=== PATIENT | female | born 1975 | race Caucasian/White ===

== ENCOUNTER 2024-06-03 13:40 | Emergency (ER) | payer OTHER ==
--- OUTSIDE RECORDS SUMMARY | 2024-06-03 13:44 | XMS REPORT | Continuity of Care Document ---
Author Name Unknown Address [address] [facility] [place] [address] [facility] thconnect Address [address] [facility] [address] [place] [address] Care Team Providers Care Chip Mixer Name Role Phone Emely Bear Attending Clinician Unavail able Christina Zuluaga Attending Clinician Unavailable Marianna LUND Attending Clinician Unavailable [email or web address]_Kadiyala_S Attending Clinician Unavaila ble [email or web address]_Kadiyala_S Admitting Clinician Unavaila ble Payers Payer Name Policy Type Policy Number Effective Date Expirati on Date Source [place] [facility] [id number] 2022 00:00:00 [facility] Gold 53 [id number] 2021 00:00:00 2022 00:00:00 [facility] from [facility] [id number] 2020 00:00:00 2021 00:00:00 [facility] [id number] 2020 00:00:00 2021 00:00:00 [facility] [id number] 2020 00:00:00 2021 00:00:00 [facility] Problems Condition Name Condition Details Condition Category Status Onset Date Resolution Date Last Treatment Date Treating Clinician Comments Source [id number] Vertigo Problem [facility] [id number] Bariatric surgery status Problem [facility] [id number] Type 2 diabetes mellitus with other diabetic kidney complicati on Problem [facility] [id number] BMI 27.0-27.9, adult Problem [facility] [id number] Non compliance w medication regimen Problem [facility] [id number] Iron deficiency anemia secondary to inadequate dietary iron intake Problem [facility] [id number] Proteinuri a, unspecifie d Problem [facility] Mixed hyperlipid emia Mixed hyperlipid emia Problem [facility] [id number] Menorrhagi a with irregular cycle Problem [facility] [id number] Acquired hypothyroi dism Problem [facility] Hyperlipid emia Hyperlipid emia Problem [facility] Hypertensi on HTN (hypertens ion) Problem [facility] Overweight Overweight Problem Co [facility] Gastroesop hageal reflux disease without esophagiti s Gastroesop hageal reflux disease without esophagiti s Problem [facility] Social History Social Habit Start Date Stop Date Quantity Comments Source History of Tobacco Use 1991-07-24 00:00:00 [facility] Sex Assigned At [facility] Smoking Status Start Date Stop Date Source Former Smoker 2024-05-14 00:00:00 2024-05-14 00:00:00 [facility] Never Smoker [facility] Medications Ordered Medication Name Filled Medication Name Start Date Stop Date Current Medication? Ordering Clinician Indication Dosage Frequency Signature (SIG) Comments Components Source Ozempic (1 MG/DOSE) 4 MG/3ML Ozempic (1 MG/DOSE) 4 MG/3ML 8-19 00:00: 00 No Ozempic (1 MG/DOSE) 4 MG/3ML Ozempic (0.25 or 0.5 MG/DOSE) 2 MG/3ML Ozempic (0.25 or 0.5 MG/DOSE) 2 MG/3ML 01-09 00:00: 00 No Ozempic (0.25 or 0.5 MG/DOSE) 2 MG/3ML Multivitami n Multivitami n No Multivitam in Iron (Ferrous Sulfate) 325 (65 Fe) MG Iron (Ferrous Sulfate) 325 (65 Fe) MG No 1{table t} Iron (Ferrous Sulfate) 325 (65 Fe) MG Levothyroxi ne Sodium 100 MCG Levothyroxi ne Sodium 100 MCG No QD Levothyrox ine Sodium 100 MCG Atorvastati n Calcium 40 MG Atorvastati n Calcium 40 MG No 1{table t} QD Atorvastat in Calcium 40 MG Levothyroxi ne Sodium 112 MCG Levothyroxi ne Sodium 112 MCG No QD Levothyrox ine Sodium 112 MCG Atorvastati n Calcium 80 MG Atorvastati n Calcium 80 MG No 1{table t} QD Atorvastat in Calcium 80 MG Immunizations Ordered Immunization Name Filled Immunization Name Date Status Comments Source Prevnar 20 (PCV20) Prevnar 20 (PCV20) Unknown Completed [facility] Prevnar 20 (PCV20) Prevnar 20 (PCV20) Unknown Completed [facility] Prevnar 20 (PCV20) Prevnar 20 (PCV20) Unknown Completed [facility] Prevnar 20 (PCV20) Prevnar 20 (PCV20) Unknown Completed [facility] Prevnar 20 (PCV20) Prevnar 20 (PCV20) Unknown Completed [facility] Prevnar 20 (PCV20) Prevnar 20 (PCV20) Unknown Completed [facility] Prevnar 20 (PCV20) Prevnar 20 (PCV20) Unknown Completed [facility] Prevnar 20 (PCV20) Prevnar 20 (PCV20) Unknown Completed [facility] Vital Signs Vital Name Observation Time Observation Value Comments S ource height 2024-05-14 08:40:00 64.5 [in_i] Comm on [facility] weight 2024-05-14 08:40:00 152.8 [lb_av] [facility] temperature 2024-05-14 08:40:00 97.8 [degF] Com mon [facility] bmi 2024-05-14 08:40:00 25.82 kg/m2 Comm on [facility] oximetry 2024-05-14 08:40:00 98 % Commo n [facility] respiratory rate 2024-05-14 08:40:00 16 /min Common [facility] blood pressure systolic 2024-05-14 08:40:00 100 mm[Hg] [facility] blood pressure diastolic 2024-05-14 08:40:00 60 mm[Hg] Common [facility] height 2024-03-12 09:20:00 64.5 [in_i] Comm on [facility] weight 2024-03-12 09:20:00 161 [lb_av] Comm on [facility] temperature 2024-03-12 09:20:00 97.7 [degF] Com mon [facility] bmi 2024-03-12 09:20:00 27.21 kg/m2 Comm on [facility] oximetry 2024-03-12 09:20:00 98 % [facility]mo n [facility] respiratory rate 2024-03-12 09:20:00 18 /min Common [facility] blood pressure systolic 2024-03-12 09:20:00 110 mm[Hg] [facility] blood pressure diastolic 2024-03-12 09:20:00 58 mm[Hg] Common [facility] height 2023-10-10 10:40:00 64.5 [in_i] Comm on [facility] weight 2023-10-10 10:40:00 172 [lb_av] Comm on [facility] temperature 2023-10-10 10:40:00 97.9 [degF] Com mon [facility] bmi 2023-10-10 10:40:00 29.06 kg/m2 Comm on [facility] oximetry 2023-10-10 10:40:00 98 % [facility]mo n [facility] respiratory rate 2023-10-10 10:40:00 16 /min Common [facility] blood pressure systolic 2023-10-10 10:40:00 124 mm[Hg] Common [facility] blood pressure diastolic 2023-10-10 10:40:00 79 mm[Hg] [facility] height 2023-08-11 08:40:00 64.5 [in_i] Comm on [facility] weight 2023-08-11 08:40:00 168 [lb_av] Comm on [facility] temperature 2023-08-11 08:40:00 98 [degF] Comm on [facility] bmi 2023-08-11 08:40:00 28.39 kg/m2 Comm on [facility] oximetry 2023-08-11 08:40:00 98 % [facility] respiratory rate 2023-08-11 08:40:00 15 /min [facility] blood pressure systolic 2023-08-11 08:40:00 111 mm[Hg] Common [facility] blood pressure diastolic 2023-08-11 08:40:00 63 mm[Hg] Common [facility] height 2023-06-27 10:00:00 64.5 [in_i] Comm on [facility] weight 2023-06-27 10:00:00 172.4 [lb_av] Co [facility] temperature 2023-06-27 10:00:00 98.5 [degF] Com mon [facility] bmi 2023-06-27 10:00:00 29.13 kg/m2 Comm on [facility] oximetry 2023-06-27 10:00:00 98 % [facility] respiratory rate 2023-06-27 10:00:00 16 /min Common [facility] blood pressure systolic 2023-06-27 10:00:00 124 mm[Hg] [facility] diastolic 2023-06-27 10:00:00 86 mm[Hg] [facility] height 2023-04-27 10:00:00 64.5 [in_i] Comm on [facility] weight 2023-04-27 10:00:00 169 [lb_av] Comm on [facility] temperature 2023-04-27 10:00:00 98 [degF] Comm on [facility] bmi 2023-04-27 10:00:00 28.56 kg/m2 Comm on [facility] oximetry 2023-04-27 10:00:00 100 % Commo n [facility] respiratory rate 2023-04-27 10:00:00 16 /min [facility] blood pressure systolic 2023-04-27 10:00:00 130 mm[Hg] [facility] blood pressure diastolic 2023-04-27 10:00:00 74 mm[Hg] [facility] height 2022-05-27 16:20:00 66 [in_i] Commo n [facility] weight 2022-05-27 16:20:00 172.0 [lb_av] Co m[facility] temperature 2022-05-27 16:20:00 98.0 [degF] Com mon [facility] bmi 2022-05-27 16:20:00 27.76 kg/m2 Comm on [facility] oximetry 2022-05-27 16:20:00 98 % Commo n [facility] respiratory rate 2022-05-27 16:20:00 16 /min Common [facility] blood pressure systolic 2022-05-27 16:20:00 138 mm[Hg] [facility] blood pressure diastolic 2022-05-27 16:20:00 77 mm[Hg] [facility] height 2022-02-25 14:40:00 66 [in_i] Commo n [facility] weight 2022-02-25 14:40:00 168.8 [lb_av] Co mmon [facility] temperature 2022-02-25 14:40:00 97.7 [degF] Com [facility] bmi 2022-02-25 14:40:00 27.24 kg/m2 Comm on [facility] oximetry 2022-02-25 14:40:00 99 % [facility]mo [facility] respiratory rate 2022-02-25 14:40:00 15 /min [facility] blood pressure systolic 2022-02-25 14:40:00 114 mm[Hg] [facility] blood pressure diastolic 2022-02-25 14:40:00 66 mm[Hg] [facility] height 2021-11-24 14:40:00 66 [in_i] Commo n [facility] weight 2021-11-24 14:40:00 171.0 [lb_av] Co mmon [facility] temperature 2021-11-24 14:40:00 97.7 [degF] Com mon [facility] bmi 2021-11-24 14:40:00 27.6 kg/m2 Commo [facility] oximetry 2021-11-24 14:40:00 99 % Com[facility] respiratory rate 2021-11-24 14:40:00 16 /min [facility] blood pressure systolic 2021-11-24 14:40:00 132 mm[Hg] [facility] blood pressure diastolic 2021-11-24 14:40:00 70 mm[Hg] Common [facility] height 2021-02-25 08:20:00 66 [in_i] Commo n [facility] weight 2021-02-25 08:20:00 170.0 [lb_av] Co mmon [facility] bmi 2021-02-25 08:20:00 27.44 kg/m2 Comm on [facility] Encounters Start Date/Time End Date/Time Encounter Type Admission Type Attending Clinicians Care Facility Care Department Encounter ID Source 2024-05-10 14:13:00 Outpatient Emely Bear STLMLC STLMLC [id number] [facility] 2024-03-08 13:39:00 Outpatient Emely Bear STLMLC STLMLC [id number] [facility] 2024-03-07 16:31:00 Outpatient Emely Bear STLMLC STLMLC [id number] [facility] 2023-10-06 08:16:00 Outpatient Emely Bear STLMLC STLMLC [id number] [facility] 2023-08-12 11:20:00 Outpatient Emely Bear STLMLC STLMLC [id number] [facility] 2023-08-09 12:01:00 Outpatient Emely Bear STLMLC STLMLC [id number] [facility] 2023-07-07 13:53:00 Outpatient Emely Bear STLMLC STLMLC [id number] [facility] 2023-06-24 09:39:00 Outpatient STLMLC STLMLC [id number] [facility] 2023-04-25 09:31:00 Outpatient STLMLC STLMLC [id number] [facility] 2023-04-22 13:23:00 Outpatient STLMLC STLMLC [id number] [facility] 2022-08-18 13:21:01 Outpatient Christina Zuluaga STLMLC STLMLC [id number] [facility] 2022-08-12 13:39:00 Outpatient ASHELY Na STLMLC STLMLC [id number] [facility] 2022-05-25 16:44:00 Outpatient Lund, Na STLMLC STLMLC [id number] [facility] 2022-02-23 14:42:00 Outpatient Lund, Na STLMLC STLMLC [id number] [facility] 2021-12-01 08:47:00 Outpatient Lund, Na STLMLC STLMLC [id number] [facility] 2021-08-19 14:39:02 Outpatient Lund, Na STLMLC STLMLC [id number] [facility] 2021-08-19 14:01:36 Outpatient Lund, Na STLMLC STLMLC [id number] [facility] 2021-08-19 13:13:58 Outpatient Lund, Na STLMLC STLMLC [id number] [facility] 2021-08-19 13:11:36 Outpatient Lund, Na STLMLC STLMLC [id number] [facility] 2021-08-19 13:10:50 Outpatient Lund, Na STLMLC STLMLC [id number] [facility] 2021-08-19 13:05:10 Outpatient Lund, Na STLMLC STLMLC [id number] [facility] 2021-08-19 12:29:58 Outpatient Lund, Na STLMLC STLMLC [id number] [facility] 2021-08-19 12:03:13 Outpatient Lund, Na STLMLC STLMLC [id number] [facility] 2021-08-19 12:02:42 Outpatient Ashely, Na STLMLC STLMLC [id number] [facility] 2021-08-19 11:36:29 Outpatient Ashely Na STLMLC STLMLC [id number] [facility] 2021-08-19 11:35:54 Outpatient Marianna Lund STLMLC STLMLC [id number] [facility] 2024-05-21 00:00:00 2024-05-21 00:00:00 (TEL) STLMLC STLMLC [id number] [facility] 2024-05-14 00:00:00 2024-05-14 00:00:00 OFFICE VISIT ESTAB PT LEVEL 4 STLMLC STLMLC [id number] [facility] 2024-05-14 00:00:00 2024-05-14 00:00:00 (TEL) STLMLC STLMLC [id number] [facility] 2024-03-12 00:00:00 2024-03-12 00:00:00 OFFICE VISIT ESTAB PT LEVEL 4 STLMLC STLMLC [id number] [facility] 2024-03-12 00:00:00 2024-03-12 00:00:00 (TEL) STLMLC STLMLC [id number] [facility] 2024-01-10 00:00:00 2024-01-10 00:00:00 OFFICE VISIT ESTAB PT LEVEL 4 STLMLC STLMLC [id number] [facility] 2024-01-10 00:00:00 2024-01-10 00:00:00 (TEL) STLMLC STLMLC [id number] [facility] 2024-01-10 00:00:00 2024-01-10 00:00:00 (TEL) STLMLC STLMLC [id number] [facility] 2024-01-10 00:00:00 2024-01-10 00:00:00 (TEL) STLMLC STLMLC [id number] [facility] 2023-10-10 00:00:00 2023-10-10 00:00:00 OFFICE VISIT ESTAB PT LEVEL 4 STLMLC STLMLC [id number] [facility] 2023-08-11 00:00:00 2023-08-11 00:00:00 OFFICE VISIT ESTAB PT LEVEL 4 STLMLC STLMLC [id number] [facility] 2023-08-11 00:00:00 2023-08-11 00:00:00 (TEL) STLMLC STLMLC [id number] [facility] 2023-07-14 00:00:00 2023-07-14 00:00:00 Outpatient GC_GCBZW_Ka diyala_S PRIV PRIV [id number] [facility] 2023-07-13 00:00:00 2023-07-13 00:00:00 Outpatient GC_GCBZW_Ka diyala_S PRIV PRIV [id number] [facility] 2023-07-07 00:00:00 2023-07-07 00:00:00 Outpatient GC_GCBZW_Ka diyala_S PRIV PRIV [id number] [facility] 2023-07-07 00:00:00 2023-07-07 00:00:00 (WEB) STLMLC STLMLC [id number] [facility] 2023-06-28 00:00:00 2023-06-28 00:00:00 Outpatient GC_GCBZW_Ka diyala_S PRIV PRIV [id number] [facility] 2023-06-27 00:00:00 2023-06-27 00:00:00 (ESTPT) Establishe d Patient STLMLC STLMLC [id number] [facility] 2023-06-22 00:00:00 2023-06-22 00:00:00 (TEL) STLMLC STLMLC [id number] [facility] 2023-05-25 00:00:00 2023-05-25 00:00:00 Outpatient GC_GCBZW_Ka diallen_S [facility] [id number] [facility] 2023-04-27 00:00:00 2023-04-27 00:00:00 OFFICE VISIT NEW PT LEVEL 4 STLMLC STLMLC [id number] [facility] 2022-05-27 00:00:00 2022-05-27 00:00:00 OFFICE VISIT ESTAB PT LEVEL 4 STLMLC STLMLC [id number] [facility] 2022-02-25 00:00:00 2022-02-25 00:00:00 OFFICE VISIT ESTAB PT LEVEL 4 STLMLC STLMLC [id number] [facility] 2021-11-30 00:00:00 2021-11-30 00:00:00 (TEL) STLMLC STLMLC [id number] [facility] 2021-11-24 00:00:00 2021-11-24 00:00:00 OFFICE VISIT ESTAB PT LEVEL 4 STLMLC STLMLC [id number] [facility] 2021-09-16 00:00:00 2021-09-16 00:00:00 (TEL) STLMLC STLMLC [id number] [facility] 2021-08-19 00:00:00 2021-08-19 00:00:00 OFFICE VISIT ESTAB PT LEVEL 4 STLMLC STLMLC [id number] [facility] 2021-05-12 00:00:00 2021-05-12 00:00:00 OFFICE VISIT EST PT LEVEL 3 STLMLC STLMLC [id number] [facility] 2021-05-08 00:00:00 2021-05-08 00:00:00 (TEL) STLMLC STLMLC [id number] [facility] 2021-05-01 00:00:00 2021-05-01 00:00:00 (TEL) STLMLC STLMLC [id number] [facility] 2021-02-25 00:00:00 2021-02-25 00:00:00 OFFICE VISIT EST PT LEVEL 3 STLMLC STLMLC [id number] [facility] 2020-12-30 00:00:00 2020-12-30 00:00:00 Outpatient STLMLC STLMLC [id number] [facility] 2020-12-30 00:00:00 2020-12-30 00:00:00 Outpatient STLMLC STLMLC [id number] [facility] 2020-12-10 00:00:00 2020-12-10 00:00:00 Outpatient STLMLC STLMLC [id number] [facility] 2020-09-25 00:00:00 2020-09-25 00:00:00 Outpatient STLMLC STLMLC [id number] [facility] 2020-09-04 00:00:00 2020-09-04 00:00:00 Outpatient STLMLC STLMLC [id number] [facility] 2020-06-03 00:00:00 2020-06-03 00:00:00 Outpatient STLMLC STLMLC [id number] [facility] 2020-03-04 10:40:00 2020-03-04 10:40:[address] [facility] [id number] [facility] 2020-01-28 15:22:00 2020-01-28 15:22:[address] [facility] [id number] [facility] 2020-01-23 10:02:00 2020-01-23 10:02:[address] [facility] [id number] [facility] 2020 15:01:00 2020 15:01:[address] [facility] [id number] [facility] 2019-12-03 08:00:00 2019-12-03 08:00:[address] [facility] [id number] [facility] 2019-10-23 10:51:00 2019-10-23 10:51:[address] [facility] [id number] [facility] 2019-08-31 11:00:00 2019-08-31 11:00:[address] [facility] [facility] [id number] [facility] 2019-08-10 15:42:00 2019-08-10 15:42:[address] [facility] [id number] [facility] 2019-06-03 12:23:00 2019-06-03 12:23:[address] [facility] [id number] [facility] 2019-05-31 10:00:00 2019-05-31 10:00:[address] [facility] [facility] [id number] [facility] 2019-01-09 13:00:00 2019-01-09 13:00:[address] [facility] [id number] [facility] 2018-11-16 15:51:00 2018-11-16 15:51:[address] [facility] [id number] [facility] 2018-10-09 11:15:00 2018-10-09 11:15:[address] [facility] [id number] [facility] 2018-07-11 08:24:00 2018-07-11 08:24:[address] [facility] [id number] [facility] 2018-03-09 09:45:00 2018-03-09 09:45:[address] [facility] [id number] [facility] 2017-11-29 08:30:00 2017-11-29 08:30:00 [facility] [id number] [facility] Results Test Description Test Time Test Comments Results Result Co mments Source CBC W/O DIFF, WITH [id number] 00:00:00* Test Item Value Reference Range Interpretation Comme nts HEMATOCRIT (test code = 59514-3) 38.9 % See_Comment [Automated messa ge] The system which generated this result transmitted reference range: 34.0-45.0 %. The reference range was not used to interpret this result as normal/abnormal. HEMOGLOBIN (test code = 718-7) 12.8 G/DL See_Comment [Automated messa ge] The system which generated this result transmitted reference range: 11.5-15.5 G/DL. The reference range was not used to interpret this result as normal/abnormal. MCH (test code = 65983-0) 28.2 PG See_Comment [Automated messa ge] The system which generated this result transmitted reference range: 25.0-33.0 PG. The reference range was not used to interpret this result as normal/abnormal. MCHC (test code = 81716-7) 32.9 G/DL See_Comment [Automated messa ge] The system which generated this result transmitted reference range: 31.0-36.0 G/DL. The reference range was not used to interpret this result as normal/abnormal. MCV (test code = 40085-8) 85.7 fL See_Comment [Automated messa ge] The system which generated this result transmitted reference range: 80.0-99.0 fL. The reference range was not used to interpret this result as normal/abnormal. PLATELET COUNT (test code = 59569-0) 289 K/UL See_Comment [Automated messa ge] The system which generated this result transmitted reference range: 130-400 K/UL. The reference range was not used to interpret this result as normal/abnormal. RBC (test code = 80498-5) 4.54 M/UL See_Comment [Automated messa ge] The system which generated this result transmitted reference range: 3.80-5.40 M/UL. The reference range was not used to interpret this result as normal/abnormal. WBC (test code = 67357-8) 6.1 K/UL See_Comment [Automated messa ge] The system which generated this result transmitted reference range: 3.5-11.0 K/UL. The reference range was not used to interpret this result as normal/abnormal. HEMOGLOBIN [id number] 00:00:00* Test Item Value Reference Range Interpretation Comme nts A1C (test code = 4548-4) 6.8 HEMOGLOBIN [id number] 00:00:00* Test Item Value Reference Range Interpretation Comme nts A1C (test code = 4548-4) 6.1 CBC W/O DIFF, WITH [id number] 00:00:00* Test Item Value Reference Range Interpretation Comme nts HEMATOCRIT (test code = 95992-2) 34.3 % See_Comment [Automated messa ge] The system which generated this result transmitted reference range: 34.0-45.0 %. The reference range was not used to interpret this result as normal/abnormal. HEMOGLOBIN (test code = 718-7) 10.0 G/DL See_Comment L [Automated messa ge] The system which generated this result transmitted reference range: 11.5-15.5 G/DL. The reference range was not used to interpret this result as normal/abnormal. MCH (test code = 13377-7) 20.4 PG See_Comment L [Automated messa ge] The system which generated this result transmitted reference range: 25.0-33.0 PG. The reference range was not used to interpret this result as normal/abnormal. MCHC (test code = 46216-6) 29.2 G/DL See_Comment L [Automated messa ge] The system which generated this result transmitted reference range: 31.0-36.0 G/DL. The reference range was not used to interpret this result as normal/abnormal. MCV (test code = 88411-4) 69.9 fL See_Comment L [Automated messa ge] The system which generated this result transmitted reference range: 80.0-99.0 fL. The reference range was not used to interpret this result as normal/abnormal. PLATELET COUNT (test code = 58019-4) 275 K/UL See_Comment [Automated messa ge] The system which generated this result transmitted reference range: 130-400 K/UL. The reference range was not used to interpret this result as normal/abnormal. RBC (test code = 28329-6) 4.91 M/UL See_Comment [Automated messa ge] The system which generated this result transmitted reference range: 3.80-5.40 M/UL. The reference range was not used to interpret this result as normal/abnormal. WBC (test code = 75696-5) 6.6 K/UL See_Comment [Automated messa ge] The system which generated this result transmitted reference range: 3.5-11.0 K/UL. The reference range was not used to interpret this result as normal/abnormal. CBC W/O DIFF, WITH [id number] 00:00:00* Test Item Value Reference Range Interpretation Comme nts COMMENTS (test code = 75963-8) (NOTE) HEMATOCRIT (test code = 92228-7) 27.3 % See_Comment L [Automated messa ge] The system which generated this result transmitted reference range: 34.0-45.0 %. The reference range was not used to interpret this result as normal/abnormal. HEMOGLOBIN (test code = 718-7) 7.8 G/DL See_Comment L [Automated messa ge] The system which generated this result transmitted reference range: 11.5-15.5 G/DL. The reference range was not used to interpret this result as normal/abnormal. MCH (test code = 84273-2) 18.1 PG See_Comment L [Automated messa ge] The system which generated this result transmitted reference range: 25.0-33.0 PG. The reference range was not used to interpret this result as normal/abnormal. MCHC (test code = 51068-3) 28.6 G/DL See_Comment L [Automated messa ge] The system which generated this result transmitted reference range: 31.0-36.0 G/DL. The reference range was not used to interpret this result as normal/abnormal. MCV (test code = 21229-9) 63.2 fL See_Comment L [Automated messa ge] The system which generated this result transmitted reference range: 80.0-99.0 fL. The reference range was not used to interpret this result as normal/abnormal. PLATELET COUNT (test code = 19383-4) 309 K/UL See_Comment [Automated [facility]] The system which generated this result transmitted reference range: 130-400 K/UL. The reference range was not used to interpret this result as normal/abnormal. RBC (test code = 48829-3) 4.32 M/UL See_Comment [Automated [facility]] The system which generated this result transmitted reference range: 3.80-5.40 M/UL. The reference range was not used to interpret this result as normal/abnormal. WBC (test code = 60748-3) 7.2 K/UL See_Comment [Automated [facility]] The system which generated this result transmitted reference range: 3.5-11.0 K/UL. The reference range was not used to interpret this result as normal/abnormal. HEMOGLOBIN [id number] 00:00:00* Test Item Value Reference Range Interpretation Comme [facility] A1C (test code = 4548-4) 7.0 % Prothrombin Time (PT) INR [id number] 00:00:00* Test Item Value Reference Range Interpretation Comme [facility] INR (test code = 6301-6) 1.0 0.9-1.2 Prothrombin Time (test code = 5902-2) 10.3 9.1-12.0
[2024-06-03] MEDS ORDERED: NA CHLORIDE 0.9% 1,000 ML ONE (15:10)
[2024-06-03 15:31] LABS: Specific Gravity > 1.030 (1.005-1.030)
[2024-06-03 15:32] LABS: Specific Gravity > 1.030 (1.005-1.030); Sqamous Epithelial <5 /HPF (None Seen); Urine Bacteria None Seen /HPF (<20); Urine Bilirubin NEGATIVE (Negative); Urine Blood 1+ (Negative); Urine Clarity Clear (Clear); Urine Color Yellow (Yellow); Urine Culture Reflex Order NOT NEEDED; Urine Glucose NEGATIVE (Negative); Urine Ketones TRACE (Negative); Urine Microscopic Reflex YN ORDER UMIC; Urine Mucus 1+ /HPF (None Seen); Urine Nitrite NEGATIVE (Negative); Urine Protein TRACE (Negative); Urine RBC >50 /HPF (None Seen); Urine Urobilinogen Normal (Normal); Urine WBC <5 /HPF (<5); Urine Yeast (Budding) Trace /HPF (None Seen); Urine pH 5.5 (5.0-7.0)
[2024-06-03 15:35] LABS: Absolute Basophils 0.1 K/uL (0-0.5); Absolute Eosinophils 0.2 K/uL (0-0.5); Absolute Monocytes 0.5 K/uL (0.1-1.3); Absolute Neutrophil 4.4 K/uL (1.8-8.0); Eosinophils % 2.3 % (0-4.4); Hematocrit 34.6 % (36.0-45.0); Hemoglobin 11.3 g/dL (12.0-15.0); Lymphocytes % 27.7 % (15.3-44.8); MCH 26.2 pg (27.0-35.0); MCHC 32.5 g/dL (32.0-36.0); MCV 80.7 fL (80-100); Monocytes % 6.5 % (3.3-12.3); Neutrophils % 62.5 % (41.7-73.7); Platelets 303 thou/uL (152-406); RBC Red Blood Cell Count 4.29 M/uL (3.86-4.86); Red Cell Distribution Width 14.5 % (12.1-15.2)
[2024-06-03 15:45] LABS: Albumin 3.9 g/dL (3.4-5.0); Albumin/Globulin Ratio 1.1 (1.1-1.8); Alkaline Phosphatase 45 U/L (45-117); Anion Gap 8.5 mEq/L (5.0-15.0); BUN Blood Urea Nitrogen 11 mg/dL (7-18); Bicarbonate 26 mEq/L (21-32); Bilirubin Total 1.3 mg/dL (0.2-1.0); Globulin 3.7 g/dL (2.3-3.5); Glomerular Filtration Rate 92 ml/min (=/>90); Glucose Level 93 mg/dL (74-106); Lipase 64 U/L (13-75); Potassium 4.5 mEq/L (3.5-5.1); Protein, Total 7.6 g/dL (6.4-8.2); Sodium Level 138 mEq/L (136-145)
[2024-06-03 15:48] LABS: ALT/SGPT < 14 U/L (13-56); AST/SGOT < 10 U/L (15-37)
--- NOTE | 2024-06-03 16:35 | RAD REPORT ---
EXAMINATION: CT Abdomen Pelvis W Contrast CLINICAL INDICATION: Female, 49 years old. Abd pain;Flank pain TECHNIQUE: CT abdomen and pelvis was performed, after the administration of IV contrast, as per [facility] protocol. Axial, sagittal and coronal reconstructions were obtained. One or more of the following dose reduction techniques were used: Automated exposure control, adjustment of the mA and k V according to patient size, and iterative reconstruction. Unless otherwise specified, incidental findings do not require dedicated imaging follow-up. COMPARISON: No prior exam. FINDINGS: LOWER CHEST: The visualized lung bases are clear. LIVER: Normal in size and contour. No focal lesion. BILIARY SYSTEM: No suspicious abnormalities. SPLEEN: Normal size. No focal lesion. PANCREAS: No mass, ductal dilation, or alize-pancreatic fluid. ADRENALS: Normal; no mass. KIDNEYS: Normal size. Multifocal left renal cortical thinning, may relate to scarring in the setting of prior infection.. No hydronephrosis. URINARY BLADDER: Unremarkable. GASTROINTESTINAL TRACT: No evidence of free air, significant intra-abdominal free fluid, bowel obstru ction or abscess. Sequelae of prior bariatric surgery. APPENDIX: Normal appendix. LYMPH NODES: No lymphadenopathy. MUSCULOSKELETAL: No acute or suspicious osseous abnormality. ADDITIONAL FINDINGS: None. IMPRESSION: No acute or concerning abnormalities seen in the abdomen or pelvis. Findings as above.
--- NOTE | 2024-06-03 16:55 | EDPHYS ---
Physician Documentation [facility] Name: Mel Cage Age: 49 yrs Sex: Female : 1975 Arrival Date: 06/03/2024 Time: 13:40 Bed 14 Private MD: SOLANGE Physician Andrae Snyder HPI: 06/03 16:50 This 49 yrs old Female presents to ER via Ambulatory with complaints of Low jane Back Pain. 16:50 The patient presents with pain that is chronic, with no known mechanism of injury. The jane symptoms are located in the low back. The pain does not radiate. The problem was sustained from unknown cause. Onset: The symptoms/episode began/occurred 1 month(s) ago. Modifying factors: The patient symptoms are alleviated by nothing, the patient symptoms are aggravated by nothing. Associated signs and symptoms: The patient has no apparent associated signs or symptoms. The patient has not experienced similar symptoms in the past. 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/2024, unknown cm10 Historical: - Allergies: 14:45 No Known Allergies; cm10 - Home Meds: 17:25 Bydureon 2 mg/0.65 mL subcutaneous pnij 0.65 mL every 7 days [Active]; glimepiride 2 mg tl4 Oral tab 1 tab once daily [Active]; Januvia 100 mg Oral tab 1 tab once daily [Active]; Jardiance 25 mg Oral tab 1 tab once daily [Active]; levothyroxine 125 mcg tab 1 tab once daily [Active]; lisinopril 10 mg Oral tab 1 tab once daily [Active]; metoprolol tartrate 25 mg Oral tab 1 tab once daily [Active]; - PMHx: 14:45 Diabetes - NIDDM; Hypertension; Hypothyroidism; cm10 14:45 Hypercholesterolemia; cm10 - PSHx: 14:45 Gastric Sleeve (Hypothyroidism); cm10 - Immunization history:: Adult Immunizations up to date. - Infectious Disease History:: Denies. - Social history:: Smoking status: Patient denies any tobacco usage or history of. - Family history:: not pertinent. ROS: 16:51 Constitutional: Negative for fever, chills, and weight loss, Eyes: Negative for injury, jane pain, redness, and discharge, ENT: Negative for injury, pain, and discharge, Neck: Negative for injury, pain, and swelling, Cardiovascular: Negative for chest pain, palpitations, and edema, Respiratory: Negative for shortness of breath, cough, wheezing, and pleuritic chest pain, Abdomen/GI: Negative for abdominal pain, nausea, vomiting, diarrhea, and constipation, : Negative for injury, bleeding, discharge, and swelling, MS/Extremity: Negative for injury and deformity, Skin: Negative for injury, rash, and discoloration, Neuro: Negative for headache, weakness, numbness, tingling, and seizure, Psych: Negative for depression, anxiety, suicide ideation, homicidal ideation, and hallucinations, Allergy/Immunology: Negative for hives, rash, and allergies, Endocrine: Negative for neck swelling, polydipsia, polyuria, polyphagia, and marked weight changes, Hematologic/Lymphatic: Negative for swollen nodes, abnormal bleeding, and unusual bruising, 16:51 Back: Positive for injury or acute deformity, decreased range of motion, Exam: 16:51 Constitutional: This is a well developed, well nourished patient who is awake, alert, jane and in no acute distress. Head/Face: Normocephalic, atraumatic. Eyes: Pupils equal round and reactive to light, extra-ocular motions intact. Lids and lashes normal. Conjunctiva and sclera are non-icteric and not injected. Cornea within normal limits. Periorbital areas with no swelling, redness, or edema. ENT: Nares patent. No nasal discharge, no septal abnormalities noted. Tympanic membranes are normal and external auditory canals are clear. Oropharynx with no redness, swelling, or masses, exudates, or evidence of obstruction, uvula midline. Mucous membranes moist. Neck: Trachea midline, no thyromegaly or masses palpated, and no cervical lymphadenopathy. Supple, full range of motion without nuchal rigidity, or vertebral point tenderness. No Meningismus. Chest/axilla: Normal chest wall appearance and motion. Nontender with no deformity. No lesions are appreciated. Cardiovascular: Regular rate and rhythm with a normal S1 and S2. No gallops, murmurs, or rubs. Normal PMI, no JVD. No pulse deficits. Respiratory: Lungs have equal breath sounds bilaterally, clear to auscultation and percussion. No rales, rhonchi or wheezes noted. No increased work of breathing, no retractions or nasal flaring. Abdomen/GI: Soft, non-tender, with normal bowel sounds. No distension or tympany. No guarding or rebound. No evidence of tenderness throughout. Back: No spinal tenderness. No costovertebral tenderness. Full range of motion. Skin: Warm, dry with normal turgor. Normal color with no rashes, no lesions, and no evidence of cellulitis. MS/ Extremity: Pulses equal, no cyanosis. Neurovascular intact. Full, normal range of motion. Neuro: Awake and alert, GCS 15, oriented to person, place, time, and situation. Cranial nerves II-XII grossly intact. Motor strength 5/5 in all extremities. Sensory grossly intact. Cerebellar exam normal. Normal gait. Psych: Awake, alert, with orientation to person, place and time. Behavior, mood, and affect are within normal limits. Vital Signs: 14:44 BP 125 / 95; Pulse 83; Resp 18; Temp 97.5(O); Pulse Ox 100% on R/A; Weight 67.13 kg; cm10 Height 5 ft. 4 in. ; Pain 5/10; 17:20 BP 112 / 70; Pulse 84; Resp 16; Temp 98.7(O); Pulse Ox 99% on R/A; tl4 14:44 Body Mass Index 25.40 (67.13 kg, 162.56 cm) cm10 14:44 Pain Scale: Adult cm10 MDM: 15:04 Medical Screening Exam initiated jane 16:52 Differential diagnosis: arthritis, strain, fracture, sciatica, contusion, Herniated jane disc. Data reviewed: vital signs, nurses notes, lab test result(s), radiologic studies. I considered the following discharge prescriptions or medication management in the emergency department Medications were administered in the Emergency Department. See MAR. Independent interpretation of the following test(s) in the Emergency Department CT Scan: My interpretation is CT ABD/PELVIS. Test considered but Not performed: Ultrasound NO MRI LUMBAR. Care significantly affected by the following chronic conditions: Diabetes, Hypertension, HIGH CHOLESTEROL, HYPOTHYROID. 06/03 13:58 Order name: Urinalysis w/ reflexes; Complete Time: 16:08 [facility] 06/03 13:58 Order name: PREGU; Complete Time: 16: [facility] 06/03 14:19 Order name: CBC with Diff; Complete Time: 16:08 [facility] 06/03 14:19 Order name: CMP; Complete Time: 16:08 [facility] 06/03 14:19 Order name: Lipase; Complete Time: 16:08 [facility] 06/03 14:19 Order name: CT Abd/Pelvis - IV Contrast Only; Complete Time: 16:49 [facility] 06/03 14:19 Order name: IV Saline Lock; Complete Time: 15:20 [facility] 06/03 14:19 Order name: Labs collected and sent; Complete Time: 15:20 [facility] Administered Medications: 15:20 Drug: NS 0.9% IV 1000 ml IV at 1 bolus Per protocol; to be given as a bolus over 60 cm10 minutes Route: IV; Rate: 1 bolus; Site: right antecubital; 17:32 Follow up: Response: No adverse reaction; IV Status: Completed infusion tl4 Disposition Summary: 06/03/24 16:54 Discharge Ordered Notes: Location: Home [facility] Problem: new jane Symptoms: have improved jane Condition: Stable [facility] Diagnosis - Low back pain - LEFT FLANK PAIN jane Followup: [facility] - With: Private Physician - When: 2 - 3 days - Reason: Recheck today's complaints, Continuance of care, Re-evaluation by your physician Followup: jane - With: Satinder Goncalves DO - When: 2 - 3 days - Reason: Recheck today's complaints, Re-evaluation by your physician Discharge Instructions: - Discharge Summary Sheet jane - Acute Back Pain, Adult [facility] - Musculoskeletal Pain [facility] Forms: - Medication Reconciliation Form [facility] - Antibiotic Education jane - Prescription Opioid Use jane - Patient Portal Instructions [facility] - Leadership Thank You Letter [facility] Prescriptions: - diclofenac sodium 50 mg Oral tablet, delayed release (enteric coated) - take 1 tablet ORAL route 3 times per day as needed for pain; 21 tablet; [facility] Refills: 0, Product Selection Permitted Signatures: Dispatcher [employer] EDAndrae Cheek MD MD cha Martinez, Clarissa RN RN cm10 Zhen Campbell RN RN tl4 Corrections: (The following items were deleted from the chart) 14:34 13:58 Spine Lumbar Wo Con+CT.RAD.BRZ ordered. EDMS EDMS
--- NOTE | 2024-06-03 16:55 | ER ---
Nurse's Notes [facility] Name: Mel Cage Age: 49 yrs Sex: Female : 1975 Arrival Date: 06/03/2024 Time: 13:40 Bed 14 Private MD: Diagnosis: Low back pain-LEFT FLANK PAIN Presentation: 06/03 14:44 Chief complaint: Patient states: Left flank pain X1 month. Pt states that the pain does cm10 not radiate. Pt denies any other symptoms. Coronavirus screen: Client denies travel out of the [place] in the last 14 days. Ebola Screen: Patient denies travel to an Ebola-affected area in the 21 days before illness onset. No symptoms or risks identified at this time. Initial Sepsis Screen: Does the patient meet any 2 criteria? No. Patient's initial sepsis screen is negative. Does the patient have a suspected source of infection? No. Patient's initial sepsis screen is negative. Risk Assessment: Do you want to hurt yourself or someone else? Patient reports no desire to harm self or others. Onset of symptoms was June 03, 2024. 14:44 Method Of Arrival: Ambulatory cm10 14:44 Acuity: DIEGO 3 cm10 Triage Assessment: 14:46 General: Appears in no apparent distress. comfortable, Behavior is calm, cooperative. cm10 Pain: Complains of pain in left flank Pain does not radiate. Pain currently is 5 out of 10 on a pain scale. Pain began 1 month ago Is intermittent. Neuro: No deficits noted. Level of Consciousness is awake, alert, obeys commands, Oriented to person, place, time, situation, Appropriate for age. Respiratory: No deficits noted. Airway is patent Respiratory effort is even, unlabored, Respiratory pattern is regular, symmetrical. 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, unknown cm10 Historical: - Allergies: 14:45 No Known Allergies; cm10 - Home Meds: 17:25 Bydureon 2 mg/0.65 mL subcutaneous pnij 0.65 mL every 7 days [Active]; glimepiride 2 mg tl4 Oral tab 1 tab once daily [Active]; Januvia 100 mg Oral tab 1 tab once daily [Active]; Jardiance 25 mg Oral tab 1 tab once daily [Active]; levothyroxine 125 mcg tab 1 tab once daily [Active]; lisinopril 10 mg Oral tab 1 tab once daily [Active]; metoprolol tartrate 25 mg Oral tab 1 tab once daily [Active]; - PMHx: 14:45 Diabetes - NIDDM; Hypertension; Hypothyroidism; cm10 14:45 Hypercholesterolemia; cm10 - PSHx: 14:45 Gastric Sleeve (Hypothyroidism); cm10 - Immunization history:: Adult Immunizations up to date. - Infectious Disease History:: Denies. - Social history:: Smoking status: Patient denies any tobacco usage or history of. - Family history:: not pertinent. Screenin:24 [facility] ED Fall Risk Assessment (Adult) History of falling in the last 3 months, tl4 including since admission No falls in past 3 months (0 pts) Confusion or Disorientation No (0 pts) Intoxicated or Sedated No (0 pts) Impaired Gait No (0 pts) Mobility Assist Device Used No (0 pt) Altered Elimination No (0 pt) Score/Fall Risk Level 0 - 2 = Low Risk Oriented to surroundings, Maintained a safe environment, Educated pt \T\ family on fall prevention, incl call for assistance when getting out of bed, Assessed \T\ reinforced patient's understanding of fall precautions. Abuse screen: Denies threats or abuse. Denies injuries from another. Nutritional screening: No deficits noted. Tuberculosis screening: No symptoms or risk factors identified. Assessment: 17:20 General: Appears in no apparent distress. Behavior is calm, cooperative. Pain: tl4 Complains of pain in back. Neuro: Level of Consciousness is awake, alert, obeys commands, Oriented to person, place, time, situation. Cardiovascular: Capillary refill < 3 seconds Patient's skin is warm and dry. Respiratory: Airway is patent Respiratory effort is even, unlabored, Respiratory pattern is regular, symmetrical, Breath sounds are clear bilaterally. GI: No signs and/or symptoms were reported involving the gastrointestinal system. : No signs and/or symptoms were reported regarding the genitourinary system. EENT: No signs and/or symptoms were reported regarding the EENT system. Derm: No signs and/or symptoms reported regarding the dermatologic system. Musculoskeletal: Reports pain in back. Vital Signs: 14:44 BP 125 / 95; Pulse 83; Resp 18; Temp 97.5(O); Pulse Ox 100% on R/A; Weight 67.13 kg; cm10 Height 5 ft. 4 in. ; Pain 5/10; 17:20 BP 112 / 70; Pulse 84; Resp 16; Temp 98.7(O); Pulse Ox 99% on R/A; tl4 14:44 Body Mass Index 25.40 (67.13 kg, 162.56 cm) cm10 14:44 Pain Scale: Adult cm10 ED Course: 13:49 Patient arrived in ED. mg5 13:57 Andrae Snyder MD is Attending Physician. jane 14:45 Triage completed. cm10 14:46 Arm band placed on right wrist. Patient placed in waiting room. cm10 15:21 CBC with Diff Sent. cm10 15:21 CMP Sent. cm10 15:21 Lipase Sent. cm10 15:21 PREGU Sent. cm10 15:21 Urinalysis w/ reflexes Sent. cm10 15:21 Initial lab(s) drawn, by me, sent to lab. Urine collected: clean catch specimen. cm10 Inserted saline lock: 20 gauge in right antecubital area, using aseptic technique. Blood collected. Flushed with 10 mL NS. 15:52 Zhen Campbell, RN is Primary Nurse. tl4 16:18 CT Abd/Pelvis - IV Contrast Only In Process Unspecified. EDMS 16:55 Satinder Goncalves DO is Referral Physician. [facility] 17:24 No provider procedures requiring assistance completed. IV discontinued, intact, tl4 bleeding controlled, No redness/swelling at site. Pressure dressing applied. 17:26 Patient has correct armband on for positive identification. Bed in low position. Call tl4 light in reach. Side rails up X 1. Provided Education on: call florez. Administered Medications: 15:20 Drug: NS 0.9% IV 1000 ml IV at 1 bolus Per protocol; to be given as a bolus over 60 cm10 minutes Route: IV; Rate: 1 bolus; Site: right antecubital; 17:32 Follow up: Response: No adverse reaction; IV Status: Completed infusion tl4 Medication: 17:25 VIS not applicable for this client. tl4 Outcome: 16:54 Discharge ordered by . jane 17:24 Discharged to home ambulatory, tl4 17:24 Condition: stable 17:24 Discharge instructions given to patient, Instructed on discharge instructions, follow up and referral plans. Demonstrated understanding of instructions, follow-up care, 17:54 Patient left the ED. tl4 Signatures: Dispatcher [employer] Andrae Charles MD MD cha Martinez, Clarissa, RN RN cm10 [address] Zhen Campbell RN RN tl4
[2024-06-03 18:06] VITALS: BP 112/70; TEMP 98.7; O2SAT 99
== END 2024-06-03 17:54 | disposition home or self-care (01) ==
LOC: ER 13:40
DX: M54.50 Low back pain, unspecified (principal); R10.9 Unspecified abdominal pain; E11.9 Type 2 diabetes mellitus without complications; I10 Essential (primary) hypertension
CPT/HCPCS: 96361; 85025; 81001; 36415; 81025; 83690; 80053; 74177; 96360; 99284; Q9967; J7030